=== PATIENT | female | born 1950 | race African-American/Black ===

== ENCOUNTER 2020-03-09 09:09 | Outpatient (CLI) | payer MEDICARE, SELFPAY ==
--- NOTE | ~2020-03-09 | MMUS_ITS ---
CORRECTED REPORT EXAMINATION CHANGED TO US breast cyst asp LT 05/16/2020 sef EXAMINATION: US breast biopsy LT w image, MM post biopsy invasive LT, US breast cyst asp LT DATE: 03/09/2020 10:31 (accession [id number]), 03/09/2020 10:30 (accession [id number]), 03/09/2020 10:31 (accession [id number]) INDICATION: Patient presents from outside hospital for ultrasound guided biopsy of two left breast masses. Ultrasound-guided core biopsy is requested to evaluate for malignancy. TECHNIQUE AND FINDINGS: The risks and potential benefits of the procedure were discussed with the patient including bleeding and infection. A time out was performed. The skin of the left breast was prepared and draped in usual sterile fashion. Attention was first directed to the mass at the 11:00 location 4 cm from the nipple. A preliminary scan, the mass had a cystic appearance. An 18-gauge needle was advanced towards the mass and the mass collapsed when the needle tip breached the margin, consistent with a cyst. Next, attention was directed towards the mass at the 12:00 location 2 cm from the nipple 1% lidocaine was used for superficial anesthesia. 1% lidocaine with epinephrine was used for deep anesthesia. A vacuum-assisted biopsy gun needle was advanced through to the outer edge of the region of interest from a lateral approach utilizing sonographic guidance. A total of three tissue core samples were obtained. A tissue marker clip was then placed at the biopsy site. Hemostasis was achieved. A sterile bandage was applied. The patient tolerated procedure well and there was no evidence of immediate complication. The patient was given verbal instructions to return to the Emergency Department in the event of severe breast pain or rapid breast enlargement. A two view left breast mammogram was obtained to document tissue marker clip placement. IMPRESSION: 1. Successful ultrasound-guided vacuum-assisted biopsy of left breast mass with tissue marker placement and left breast cyst aspiration. Reviewed, dictated and finalized at location A. KAYLENE IMPRESSION: 1. Successful ultrasound-guided vacuum-assisted biopsy of left breast mass with tissue marker placement and left breast cyst aspiration. IMPRESSION: 1. Successful ultrasound-guided vacuum-assisted biopsy of left breast mass with tissue marker placement and left breast cyst aspiration.
== END 2020-03-09 09:10 | disposition home or self-care (01) ==
PROVIDERS: Visit Provider Surgery
DX: R92.8 Other abnormal and inconclusive findings on diagnostic imaging of breast (principal); Z85.3 Personal history of malignant neoplasm of breast; N60.12 Diffuse cystic mastopathy of left breast; I86.2 Pelvic varices
CPT/HCPCS: 19000; 19001; 19083; 88305; A4648

== ENCOUNTER 2022-08-15 13:56 | Outpatient (CLI) | payer MEDICARE, SELFPAY ==
--- NOTE | ~2022-08-15 | XR_ITS ---
EXAMINATION: XR chest 2V DATE: 08/15/2022 14:37 INDICATION: Hypertension. Preop. TECHNIQUE: Frontal and lateral views of the chest were obtained. COMPARISON: None. FINDINGS: The chest demonstrates clear lungs without pneumonia, pleural effusion, or pneumothorax. Th e heart size is normal. There are surgical clips in right axilla. IMPRESSION: 1. No acute cardiopulmonary disease. Reviewed, dictated and finalized at location A. [employer]
--- NOTE | 2022-08-15 14:00 | ECG_ITS ---
Measurements Intervals [place] Rate: 73 P: 60 ND: 188 QRS: 5 QRSD: 90 T: 31 QT: 350 QTc: 387 Interpretive Statements SINUS RHYTHM INFERIOR MYOCARDIAL INFARCTION [40+ ms Q WAVE AND/OR ST/T ABNORMALITY IN II/aVF], PROBABLY OLD NO PREVIOUS ECG AVAILABLE FOR COMPARISON Electronically Signed On 08-15-2022 15:08:18 [employer] by Kaitlin Rajan M.D.
[2022-08-15 14:54] LABS: Basophils Absolute Auto 0.1 K/mm3 (0.0-0.1); Basophils Percent Auto 0.9 % (0.2-1.2); Eosinophils Absolute Auto 0.2 K/mm3 (0-0.3); Eosinophils Percent Auto 3.9 % (0-4.4); Hematocrit 41.2 % (37.0-47.0); Immature Granulocyte Absolute 0.01 K/mm3 (0.00-0.031); Immature Granulocyte Percent A 0.2 % (0-0.5); Lymphocytes Absolute Auto 2.15 K/mm3 (0.9-3.2); Lymphocytes Percent Auto 39.4 % (18.3-44.2); Mean Corpuscular HGB Conc 31.6 g/dl (32-36); Mean Corpuscular Hemoglobin 27.3 pg (26-34); Mean Corpuscular Volume 86.4 fl (80-100); Mean Platelet Volume 10.7 fl (7.4-10.4); Monocytes Absolute Auto 0.5 K/mm3 (0.1-0.6); Monocytes Percent Auto 8.3 % (2.6-8.5); Neutrophils Absolute Auto 2.6 K/mm3 (1.3-6.7); Neutrophils Percent Auto 47.3 % (45.5-73.1); Platelet Count Result 197 k/mm3 (150-375); Red Blood Count 4.77 M/mm3 (4.2-5.4); Red Cell Distribution Width 13.2 % (11.5-14.5); White Blood Count 5.5 K/mm3 (4.5-10.0)
[2022-08-15 15:07] LABS: Potassium 3.7 mmol/L (3.4-5.0)
[2022-08-15 15:22] LABS: Anion Gap 7 mmol/L (8-16); Blood Urea Nitrogen 21 mg/dL (7-17); Calcium 9.1 mg/dL (8.4-10.2); Carbon Dioxide 28 mmol/L (22-30); Chloride 103 mmol/L (98-107); Estimated Glomerular Filt Rate > 60; Glucose 104 mg/dL (65-110); Sodium 138 mmol/L (137-145)
== END 2022-08-15 13:57 | disposition home or self-care (01) ==
LOC: ANHSURGERY 14:01
PROVIDERS: Visit Provider Surgery
DX: C50.911 Malignant neoplasm of unspecified site of right female breast (principal); Z15.01 Genetic susceptibility to malignant neoplasm of breast; Z15.09 Genetic susceptibility to other malignant neoplasm
CPT/HCPCS: 36415; 71046; 80048; 85025; 86850; 86900; 86901; 93005

== ENCOUNTER 2022-08-31 13:10 | Outpatient (CLI) | payer MEDICARE, SELFPAY | END 2022-08-31 13:11 | disposition home or self-care (01) | PROVIDERS: Visit Provider Surgery | DX: Z85.3 Personal history of malignant neoplasm of breast (principal); Z01.818 Encounter for other preprocedural examination | CPT/HCPCS: 36415; 86850; 86900; 86901 ==

== ENCOUNTER 2022-09-06 14:15 | Observation (INO) | payer MEDICARE, SELFPAY ==
--- NOTE | 2022-08-13 09:33 | PC.NURSE ---
Report to the Outpatient Waiting Room, entrance under the green pavilion located off [facility], at time _0800 on date __08/21/22 . Planned Procedure Time: _1000 . Time changes happen often and if your time is changed the preop area will call you the afternoon before. - You and your visitor will be asked to self-screen and do not enter if you have any COVID symptoms. - Only one visitor is requested with a max of two and NO children visitors are allowed at this time. - The patient visitor may be requested to leave or wait in car when not with patient due to distancing restrictions. - A mask is optional within the hospital at this time. Patients may have clear liquids (water, carbonated beverages, clear teas, apple juice) until 3 hours prior to surgery with a maximum of 20 ounces. - No food from midnight until time of surgery - Infants may have breast milk until 4 hours before surgery, formula 6 hours prior to surgery. - Children will be allowed to drink immediately following surgery. If applicable, please bring a bottle or sippy cup to assist with drinking. Juice, water, soda, and popsicles are readily available. For infants on formula, please bring formula the day of surgery. Pacifiers are allowed. Take the following medications with a SIP of water the morning of surgery: __NONE DO NOT STOP ANY OF YOUR OTHER PRESCRIPTION MEDICATIONS PRIOR TO SURGERY ?EXCEPT THE FOLLOWING Medications to discontinue per physician ___NONE Date to take last dose HIBICLENS SHOWER MORNING OF SURGERY Please no make-up, nail frisian, hairspray, perfume, deodorant, or body powder the day of surgery. No jewelry (including any body piercings) or valuables the day of surgery, leave them at home. Please take a shower or bath the night before, or the morning of, surgery with an antibacterial soap. Wear comfortable, loose fitting clothing. Children are encouraged to wear pajamas. - Jewelry must be removed prior to entering the operating room. Rings and piercings that are not removed may be cut off. - The hospital will not accept responsibility for valuables. - Please leave all valuables, including medications, at home the day of surgery. If you are going home after surgery, a licensed electric truck driver must drive you home. - NO public transportation without another adult if you receive anesthesia. - We recommend that an adult stay with you for 24 hours following discharge. - We also recommend that you do not drive, make important decision, drink alcoholic beverages, or take any drugs that were not prescribed by your health care provider for at least 24 hours after your discharge time. Follow any additional instructions given to you from your surgeon. If you or anyone in your household have experienced Covid symptoms in the past week, please notify your surgeon or the nurse liaison at the phone number below for possible testing. Telephone instructions given to __PATIENT and asked if any additional questions and then verbalized understanding. Patient advised to call surgeon office or pre surgery nurse liaison [phone] if any additional questions.
[2022-08-13 09:42] VITALS: BMI 27.8
--- NOTE | 2022-08-30 13:37 | PC.NURSE ---
Report to the Outpatient Waiting Room, entrance under the green pavilion located off [facility] [address], at time __0900 on date __09/05/22 . Planned Procedure Time: __1100 . Time changes happen often and if your time is changed the preop area will call you the afternoon before. - You and your visitor will be asked to self-screen and do not enter if you have any COVID symptoms. - Only one visitor is requested with a max of two and NO children visitors are allowed at this time. - The patient visitor may be requested to leave or wait in car when not with patient due to distancing restrictions. - A mask is optional within the hospital at this time. Patients may have clear liquids (water, carbonated beverages, clear teas, apple juice) until 3 hours prior to surgery with a maximum of 20 ounces. - No food from midnight until time of surgery - Infants may have breast milk until 4 hours before surgery, formula 6 hours prior to surgery. - Children will be allowed to drink immediately following surgery. If applicable, please bring a bottle or sippy cup to assist with drinking. Juice, water, soda, and popsicles are readily available. For infants on formula, please bring formula the day of surgery. Pacifiers are allowed. Take the following medications with a SIP of water the morning of surgery: ____NONE DO NOT STOP ANY OF YOUR OTHER PRESCRIPTION MEDICATIONS PRIOR TO SURGERY ?EXCEPT THE FOLLOWING Medications to discontinue per physician NONE Date to take last dose HIBICLENS SHOWER MORNING OF SURGERY Please no make-up, nail lao, hairspray, perfume, deodorant, or body powder the day of surgery. No jewelry (including any body piercings) or valuables the day of surgery, leave them at home. Please take a shower or bath the night before, or the morning of, surgery with an antibacterial soap. Wear comfortable, loose fitting clothing. Children are encouraged to wear pajamas. - Jewelry must be removed prior to entering the operating room. Rings and piercings that are not removed may be cut off. - The hospital will not accept responsibility for valuables. - Please leave all valuables, including medications, at home the day of surgery. If you are going home after surgery, a licensed cement mixer driver must drive you home. - NO public transportation without another adult if you receive anesthesia. - We recommend that an adult stay with you for 24 hours following discharge. - We also recommend that you do not drive, make important decision, drink alcoholic beverages, or take any drugs that were not prescribed by your health care provider for at least 24 hours after your discharge time. For Pediatric surgeries, we recommend two adults accompany the child home. Follow any additional instructions given to you from your surgeon. If you or anyone in your household have experienced Covid symptoms in the past week, please notify your surgeon or the nurse liaison at the phone number below for possible testing. Telephone instructions given to ___PATIENT and asked if any additional questions and then verbalized understanding. Patient advised to call surgeon office or pre surgery nurse liaison [phone] if any additional questions.
--- NOTE | 2022-08-30 13:39 | PC.NURSE ---
PT STATES NO CHANGE IN HEALTH HX SINCE LAST INTERVIEW ON 08/13/22
--- NOTE | 2022-09-04 15:29 | PM.IMHP ---
H&P: HPI History of Present Illness Date/Time: 09/04/22 15:29 Chief Complaint: Recurrent right breast cancer Narrative: Patient is a 72-year-old woman who in 1997 was found to have a stage I upper outer quadrant right breast invasive cancer. She underwent lumpectomy, sentinel lymph node biopsy. She was also treated with radiation therapy. She has very strong family history of early development of breast and other malignancies. She underwent genetic testing in May of 2017. She was found to have BRCA2 positivity. Patient had in 2018 an abnormal lesion at the 4 o'clock position in the right breast. Image guided core biopsy of this showed only some fibrosis and possibly PASH. She underwent a laparoscopic bilateral salpingo-oophorectomy in February of 2020. This was negative for any signs of ovarian cancer. Patient on screening mammography in late 2021 was found to have 2 suspicious lesions by primarily ultrasound at the 4 o'clock position in the right breast. Ultrasound-guided biopsy of each of these lesions both showed invasive adenocarcinoma. One of the lesions was 16 mm in size, the other was 11 mm in size. After discussion in the office, the patient is recommended and agrees to proceed with right modified radical mastectomy. Because of her BRCA 2 status, she prefers to also have left mastectomy. She is taken to surgery at this time for both these procedures under anesthesia. Review of Systems Review of Systems: All systems reviewed & are unremarkable except as noted in HPI and below (HPI and those items noted below) Constitutional: Constitutional: Denies chills and Denies fever(s) Cardiovascular: Cardiovascular: Denies chest pain, Denies diaphoresis, Denies dyspnea and Denies paroxysmal nocturnal dyspnea Respiratory: Respiratory: Denies chest congestion, Denies cough and Denies dyspnea Integumentary/Breasts: Skin/Breast: Denies lesions and Denies rash PMF Past Medical History Medical History (Updated 09/04/22 @ 15:50 by Gómez Roach MD) Hepatitis-C High cholesterol Hypertension Surgical History Surgical History (Updated 09/04/22 @ 15:50 by Gómez Roach MD) History of bilateral salpingo-oophorectomy (BSO) February 2020, no evidence of malignancy History of right breast cancer Diagnosed and treated 1997. Lumpectomy, sentinel node biopsy, radiation therapy and chemotherapy. Family History Family History Sibling Cerebrovascular accident Family history of malignant neoplasm Father COPD (chronic obstructive pulmonary disease) Other Diabetes mellitus Family history of cardiovascular disease Hypertension Social History Social History Smoking status: Never smoker Alcohol intake: current Living arrangements: alone Spiritual care concerns: No Meds Home Medications and Allergies Home Medications Medication Instructions Recorded Confirmed Type amlodipine 10 mg tablet 10 mg PO DAILY 02/24/20 08/30/22 History atorvastatin 20 mg tablet 20 mg PO DAILY 02/24/20 08/30/22 History benazepril 40 mg tablet 40 mg PO DAILY 02/24/20 08/30/22 History Allergies Allergy/AdvReac Type Severity Reaction Status Date / Time codeine AdvReac sick Verified 08/30/22 13:40 Exam Const: General: comfortable, no acute distress, alert and awake HENMT: Head: normocephalic and atraumatic Mouth: Yes Normal oral and palatal mucosa present Eyes: Conjunctivae: conjunctivae normal Pupils: Equal, round and reactive pupils present EOM: EOMs intact bilaterally Neck: Neck: normal visual inspection, no lymphadenopathy and nontender Chest: Chest palpation & inspection: normal inspection of the chest and normal palpation of entire chest wall Breast/axilla inspection: abnormal inspection of the axilla (Axillary incision scar) and abnormal inspection of the breast (Upper outer quadrant right jase
[2022-09-05] VITALS (13 sets, daily range): BP systolic 121–158; BP diastolic 66–89; PULSE 62–92; RESP 12–18; TEMP 36.2–36.8; O2SAT 97–100; BMI 26.8
[2022-09-05] MEDS: ACETAMINOPHEN 500 MG TABLET 1000 MG PO (09:26)
[2022-09-05] MEDS: KETOROLAC 15 MG/ML VIAL (*BKC) IV PUSH (09:42)
[2022-09-05] MEDS: LACTATED RINGERS 1,000 ML 30 ML IV CONT ×2 (09:42→14:25)
--- NOTE | 2022-09-05 09:58 | WPDHPUPDATE1 ---
History and Physical Update Update Date/Time: 09/05/22 09:58 History and Physical has been reviewed, including an updated exam of the patient. There are NO changes in the patient's condition. Risks, benefits, and alternatives have been discussed and questions answered. Patient agrees to proceed with procedure.
--- NOTE | 2022-09-05 10:35 | WPDANESEPPF ---
Anes - Initial Pre Proc Eval Procedure: Operation Date: 09/05/22 11:00 Proposed Procedures p Right Modified Radical Mastectomy, - Gómez Roach MD s Left Simple Mastectomy - Gómez Roach MD Date/Time: 09/05/22 10:35 Surgeon: Gómez Roach MD Pre Op Diagnosis: recurrent breast cancer, +BRCA gene Patient Data Age: 72 Gender: F Height: 1.6 m Weight: 68.6 kg Last Vital Signs Temp 36.7 C 09/05/22 09:00 Pulse 63 09/05/22 09:00 Resp 16 09/05/22 09:00 BP 158/74 H 09/05/22 09:00 Pulse Ox 100 09/05/22 09:00 O2 Del Method Room Air 09/05/22 09:00 Allergies Allergy/AdvReac Type Severity Reaction Status Date / Time codeine AdvReac Intermediate Nausea and Verified 09/05/22 09:24 Vomiting Home Medications Medication Instructions Recorded Confirmed Type amlodipine 10 mg tablet 10 mg PO DAILY 02/24/20 09/05/22 History atorvastatin 20 mg tablet 20 mg PO DAILY 02/24/20 09/05/22 History benazepril 40 mg tablet 40 mg PO DAILY 02/24/20 09/05/22 History Patient hx anesthesia problems: none Family hx anesthesia problems: none Results Review: All pre-operative results and documents have been reviewed as part of the pre-operative evaluation. [facility] Past Medical History Medical History Hepatitis-C High cholesterol Hypertension Surgical History Surgical History History of bilateral salpingo-oophorectomy (BSO) February 2020, no evidence of malignancy History of right breast cancer Diagnosed and treated 1997. Lumpectomy, sentinel node biopsy, radiation therapy and chemotherapy. Family History Family History Sibling Cerebrovascular accident Family history of malignant neoplasm Father COPD (chronic obstructive pulmonary disease) Other Diabetes mellitus Family history of cardiovascular disease Hypertension Social History Social History Smoking status: Never smoker Alcohol intake: current Living arrangements: alone Spiritual care concerns: No Anes - Eval Final PreProcedure Day of Procedure 09/05/22 10:35 Patient weight: overweight Heart: regular rate and rhythm Lungs: clear to auscultation Airway: Mallampati scale class II Neurological: alert and oriented Last oral intake: >/= 8 hours ASA classification: III Emergent: no Anesthetic plan: proceed Anesthesia type and monitoring: general LMA and standard monitoring Results Review: All pre-operative results and documents have been reviewed as part of the pre-operative evaluation. Informed Consent: The patient's anesthetic plan and its attendant risks and benefits were discussed with the patient/family/POA. Questions were solicited and answers provided to the satisfaction of the patient/family/POA.
[2022-09-05] MEDS: ceFAZolin 2 GM/D5W 50 ML 2 GM/50 ML BAG IVPB (11:29)
--- NOTE | 2022-09-05 12:32 | SUR.OPER ---
Addendum entered by Larissa Islas RN 09/05/22 13:42: RIGHT BREAST SPECIMEN- Out of Room- 1339 Received by Lab- [id number] Original Note: LEFT BREAST SPECIMEN- Excision- 1227 Out of Room- 1228 Received by Lab- [id number] RIGHT BREAST SPECIMEN-
--- NOTE | 2022-09-05 14:19 | W.PM.PROC2 ---
Procedure Note - Detailed Date of Procedure 09/05/22 Pre-op Diagnosis recurrent Right breast cancer, +BRCA gene Post-op Diagnosis Same Procedure Performed left total mastectomy, right modified radical mastectomy Surgeon Gómez Roach MD [employer]iston [employer] Leila FONSECA /Huong FONSECA Anesthesia General Indications patient had right breast cancer in 1997. She had a lumpectomy and axillary surgery as well as radiation therapy and chemotherapy. She could not remember if her axillary surgery was a sentinel node biopsy or a more involved axillary dissection. She has developed recurrent right breast cancer now in the inferior medial quadrant in 2 different areas. She has had genetic testing due to a strong family history of breast and other malignancies at an early age. She is known to have BRCA 2 gene mutation. She also requests to have prophylactic left mastectomy due to her genetic mutation and high risk of left breast cancer. She is taken to surgery now for left total mastectomy, right modified radical mastectomy. Findings No gross evidence of malignancy was noted. It appeared the patient did have a right axillary dissection. We removed what axillary tissue we could find to perform a level 2 axillary dissection but no definite lymph nodes were appreciated. Left breast had no suggestion of malignancy or other problems. Description of Procedure Patient was taken to surgery and induced into general anesthesia. Both breasts were prepped and draped. On the right side the right arm was prepped into the field so that it was mobile in the axilla was well visualized. The left breast had the IV and was placed on an arm board at right angles from the patient's left chest. After prep and drape, we turned our attention 1st to the left breast. A Rigo type ellipse was drawn around the left breast nipple. Incision were made over the area of the lips. Cautery was used for hemostasis. We started with the superior flaps using face-lift retractors to elevate the skin. The superior flap was raised taking care not to injure the skin or make the flap to thin. We dissected up to the area of the left clavicle. We then dissected onto the chest wall. We continued over medially to the lateral aspect of the sternum. The cautery was used for virtually all the dissection. Cautery was used for hemostasis as well. Once the superior flap been created, I change positions with the 1st social human services assistants. We then elevated the inferior flap in similar fashion. This was taken down to the insertion of the rectus muscle. Re proceeded medially to the lateral border of the sternum and laterally to the serratus anterior muscle. We then changed sides again. The breast was elevated and, taking the pectoralis major fascia with the breast specimen, we dissected the breast off the pectoralis major muscle. Once the breast was removed, it was submitted fresh to the pathologist labeled right breast. We then inspected the wound and mated meticulously hemostatic. A 15 [place] Mayo drain was placed under the superior flap and brought out through the lateral aspect of the lower flap. The drain was sutured to the skin with 2-0 silk. The 2 flaps were then closed using interrupted 3-0 and 4-0 Vicryl subcuticular interrupted suture. Finally the skin was closed with a running 4-0 Monocryl skin suture. The drain was placed to bulb suction and held suction well. The surgical team then changed to the patient's right side and proceeded with the modified radical mastectomy. In similar fashion, a Rigo type ellipse was drawn around the right breast nipple such that the lateral aspect of this ellipse was aimed at the axillary contents. incision was made over the entire ellipse. Cautery was used for hemostasis. We then elevated the superior flap in similar fashion as had been done on the right side. Superior flap was created using similar boundaries of the right clavicle, lateral border of the
--- NOTE | 2022-09-05 16:40 | ADMGEN ---
This patient, Jyotsna Bruce, was admitted to Medical Room 341-01. Patient/family oriented to hospital policies and general routines including ID bracelet, bed and alarms, visiting hours, pain management, procedures, bathroom and other care routines, personal items, smoking policy, room service/diet, and visiting hours. Information on how to activate the Rapid Response Team has been discussed. Patient/Family are encouraged to report perceived risks to care and to ask questions if they do not understand what they are told or what they should do.
[2022-09-05] MEDS: DOCUSATE SODIUM 100 MG CAPSULE PO (17:04)
[2022-09-05] MEDS: ONDANSETRON INJ 4 MG/2 ML VIAL IV PUSH (17:04)
[2022-09-05] MEDS: LACTATED RINGERS 1,000 ML 100 ML IV CONT (20:25)
--- NOTE | 2022-09-05 21:41 | PC.NURSE ---
Pt teaching was given regarding CARMINA drains as pt will be discharged with all 3 drains per physician written instructions. Pt was instructed on numbers of CARMINA drains that in place (2 drains on right side and 1 drain on left side), how to empty it, and how to close the drains once its empty. Pt was advised to record each output and to monitor the color of output from the drains (all recordings to be kept and to be brought in for follow up appointment). Teachings were demonstrated to the patient and did not have any further questions from the patient.
[2022-09-06] VITALS (10 sets, daily range): BP systolic 105–143; BP diastolic 55–75; PULSE 64–99; RESP 13–18; TEMP 35.7–36.6; O2SAT 94–100
[2022-09-06] MEDS: DOCUSATE SODIUM 100 MG CAPSULE PO (08:20)
[2022-09-06] MEDS: ENOXAPARIN 40 MG/0.4 ML SYRINGE SUB-Q (08:20)
[2022-09-06] MEDS: lisinopriL 20 MG TABLET 40 MG PO (08:20)
[2022-09-06] MEDS: amLODIPine BESYLATE 5 MG TABLET 10 MG PO (08:20)
[2022-09-06] MEDS: ATORVASTATIN 20 MG TABLET PO (08:20)
--- NOTE | 2022-09-06 10:24 | WPDANESPN ---
Anes - Prog Note Post-Op Date/Time: 09/06/22 10:24 Cardiovascular status: normal Respiratory status: normal Airway patency: baseline Mental status: baseline Post-Op hydration status: normal Vital Signs: Last Vital Signs Temp 36.1 C L 09/06/22 04:23 Pulse 64 09/06/22 04:23 Resp 18 09/06/22 04:23 BP 116/59 L 09/06/22 04:23 Pulse Ox 100 09/06/22 04:23 O2 Del Method Room Air 09/06/22 08:00 O2 Flow Rate 8 09/05/22 14:40 Pain Score (VAS): 0 I/O: Intake & Output 09/05/22 09/06/22 09/06/22 23:59 07:59 15:59 Intake Total 550 200 240 Output Total 130 365 Balance 420 -165 240 Post-procedural complaints: none Patient Feedback: Patient satisfied with anesthetic care.
--- NOTE | 2022-09-06 11:48 | PM.PNGS ---
Progress Note: A&P Assessment and Plan (1) Seroma after procedure: Status: Acute Assessment and Plan: Seroma or hematoma accumulating right mastectomy site. Right side healing appropriately. Explained to patient. Will take back to surgery today to evacuate and replace drain. Make NPO now. (2) Invasive ductal carcinoma of right breast: Code(s): C50.911 - Malignant neoplasm of unspecified site of right female breast Status: Chronic Assessment and Plan: s/p right mastectomy, healing well (3) BRCA2 gene mutation positive in female: Code(s): Z15.01 - Genetic susceptibility to malignant neoplasm of breast; Z15.02 - Genetic susceptibility to malignant neoplasm of ovary; Z15.09 - Genetic susceptibility to other malignant neoplasm Status: Chronic Assessment and Plan: s/p left prophylactic mastectomy. See above. Subjective Subjective Date/Time Seen: 09/06/22 11:48 Post Op day: 1 Patient reports: no new complaints, feels better, pain is less, tolerating a regular diet, no flatus, no bowel movement and afebrile Interval history: feels good. Requiring very little pain medication. Has been up to BR and up in room. Exam Const: General: comfortable and no acute distress; No confusion Orientation/consciousness: patient oriented x3 and No confusion Chest: Chest palpation & inspection: abnormal inspection of the chest (large seroma left mastectomy wound. Some ecchymosis) other (drain still working but sanguinous in grenade. ) Neuro: General: patient oriented x3, no focal motor deficits and No confusion Extrem: General: no calf tenderness and no edema Psych: Affect: normal affect Insight: Good insight present (Psych) Judgement: Good judgement present (Psych) Objective Data Vital Signs Vital Signs: Vital Signs - 24 hr 09/05/22 14:25 09/05/22 14:40 09/05/22 14:55 Temperature 36.2 C L Pulse Rate 92 70 68 Respiratory Rate 16 12 16 Blood Pressure 138/73 141/76 H 146/74 H Pulse Oximetry 100 100 97 Oxygen Delivery Simple Face Mask Simple Face Mask Room Air Oxygen Flow Rate 8 8 09/05/22 15:10 09/05/22 15:25 09/05/22 15:40 Temperature Pulse Rate 70 62 71 Respiratory Rate 15 16 16 Blood Pressure 155/81 H 137/67 130/73 Pulse Oximetry 97 97 98 Oxygen Delivery Room Air Room Air Room Air Oxygen Flow Rate 09/05/22 15:55 09/05/22 16:10 09/05/22 16:25 Temperature Pulse Rate 65 68 77 Respiratory Rate 14 16 18 Blood Pressure 130/70 128/72 130/71 Pulse Oximetry 98 97 98 Oxygen Delivery Room Air Room Air Room Air Oxygen Flow Rate 09/05/22 16:50 09/05/22 18:27 09/05/22 20:07 Temperature 36.8 C 36.6 C Pulse Rate 70 65 Respiratory Rate 16 18 Blood Pressure 130/89 121/66 Pulse Oximetry 98 98 Oxygen Delivery Room Air Oxygen Flow Rate 09/05/22 20:00 09/06/22 00:43 09/06/22 04:23 Temperature 36.6 C 36.1 C L Pulse Rate 65 73 64 Respiratory Rate 18 18 18 Blood Pressure 108/59 L 116/59 L Pulse Oximetry 98 98 100 Oxygen Delivery Room Air Oxygen Flow Rate 09/06/22 08:00 Temperature Pulse Rate Respiratory Rate Blood Pressure Pulse Oximetry Oxygen Delivery Room Air Oxygen Flow Rate Intake/Output Intake/Output: Intake & Output 09/03/22 09/04/22 09/05/22 09/06/22 23:59 23:59 23:59 23:59 Intake Total 550 440 Output Total 140 365 Balance 410 75 Meds/Results Medications: Active Medications Generic Name Dose Route Start Last Admin Trade Name Freq PRN Reason Stop Dose Admin Acetaminophen 500 mg 09/05/22 16:30 Acetaminophen 500 Mg Tablet PO Q6H PRN Mild Pain (1-3) or Fever Hydrocodone Bitart/Acetaminophen 1 tab 09/05/22 16:30 Hydrocodone/Acetaminophen (*Crx) 5-325 Mg Tablet PO Q4H PRN Pain Rated 4-6 Hydrocodone Bitart/Acetaminophen 1 tab 09/05/22 16:30 Hydrocodone/Acetaminophen (*Crx) 10-325 Mg Tablet PO Q6H PRN Pain Rated 7-10 Amlodipine Besylate 10 mg
[2022-09-06] MEDS: LACTATED RINGERS 1,000 ML 30 ML IV CONT (13:45)
--- NOTE | 2022-09-06 14:30 | P.PNAN_ITS ---
Anes - Eval Final PreProcedure Day of Procedure 09/06/22 14:30 Patient weight: overweight Heart: regular rate and rhythm Lungs: clear to auscultation Airway: Mallampati scale class II Neurological: alert and oriented Last oral intake: 4 hours (930am) ASA classification: III Emergent: no Anesthetic plan: proceed Anesthesia type and monitoring: monitored anesthesia care Results Review: All pre-operative results and documents have been reviewed as part of the pre- operative evaluation. Informed Consent: The patient's anesthetic plan and its attendant risks and benefits were discussed with the patient/family/POA. Questions were solicited and answers provided to the satisfaction of the patient/family/POA.
--- NOTE | 2022-09-06 14:48 | WPDHPUPDATE1 ---
History and Physical Update Update Date/Time: 09/06/22 14:48 History and Physical has been reviewed, including an updated exam of the patient. There are NO changes in the patient's condition. Risks, benefits, and alternatives have been discussed and questions answered. Patient agrees to proceed with procedure.
[2022-09-06] MEDS: ceFAZolin 2 GM/D5W 50 ML 2 GM/50 ML BAG IVPB (15:01)
[2022-09-06] MEDS: BUPIVACAINE/EPINEPHRINE 0.5% 30 ML VIAL INFILTRATE (16:06)
--- NOTE | 2022-09-06 16:39 | W.PM.PROC2 ---
Procedure Note - Detailed Date of Procedure 09/06/22 Pre-op Diagnosis Left mastectomy seroma Post-op Diagnosis Other ( left mastectomy hematoma) Procedure Performed evacuation large hematoma left mastectomy wound Surgeon Gómez Roach MD Foil Wrapper Heather FONSECA Anesthesia General and Local ( 0.5% Marcaine with epinephrine) Indications patient underwent bilateral mastectomy yesterday. On rounds this morning, she had a large fluid collection with some mild bruising on the left mastectomy site. She was not having any pain. The left CARMINA drain was still draining serous fluid. She is taken back to surgery now for evacuation of presumptive seroma. Findings This was actually a large hematoma. The actual site of bleeding was not found. Probably 150 cc of hematoma and old blood were present in the left mastectomy wound. Very little bleeding occurred with the procedure. Description of Procedure Patient was taken to surgery and IV sedation was administered. The left-sided CARMINA drain was removed. The left chest was prepped and draped. The Xeroform adhesive was attempted to be removed but was very adherent. Some was able to be removed but the other was so stuck it was concerning for skin injury to try to remove it. Local was infiltrated over the mid and lateral aspects of the mastectomy incision. I then opened the wound in this location. There was bulky hematoma present. We started to evacuate this but the patient was uncomfortable and no further local anesthetic could be administered to help with that. She was converted to general endotracheal anesthesia. I then proceeded to open the entire mastectomy wound. We evacuated all the old blood and clot. This took a considerable amount of time and required irrigation with copious amounts of normal saline. I removed as much of the hematoma as I could. We then searched the pectoralis major muscle the lateral aspect of the mastectomy wound as well as both the superior and inferior flaps thoroughly for a source of bleeding. There was some small areas particularly on the pectoralis major muscle that were cauterized. A couple of other small areas on the superior flap were cauterized. It is doubtful these were the source of the bleeding as they more likely were areas where the hematoma had been removed and the underlying tissue oozed blood. I then again irrigated the entire mastectomy wound with warm saline. We looked again for any sign of bleeding. None was noted. A 19 Mayo drain was placed in the lateral and posterior position of the inferior flap. This drain was positioned under the superior flap. A 2nd 19 Mayo drain was then placed more medial than the 1st drain and again through the lower aspect of the inferior flap. This drain was placed under the inferior flap and in the center of the wound. Both drains were sutured securely to the skin. The mastectomy wound was then closed with interrupted 3-0 Vicryl suture to approximate most of the wound. We then placed 4-0 Vicryl subcuticular interrupted suture to finish closing the wound. We then placed suction to each of the drains and placed a bulb suction to each drain. Mastectomy wound looked better and the flaps were attached to the chest wall as they should be. The incision was dressed with Xeroform gauze, 4x4s and Medipore tape. Drain sponges and Medipore tape were placed around each of the drains. The patient was then awakened and taken to recovery in good condition. The left arm was placed in a sling before leaving the operating room. Sponge needle counts were correct x2. Estimated Blood Loss -20 Urine Output 300 Drains Yes ( Nineteen Mayo drains under the superior flap and under the inferior flap) Packing No Pathology None sent Complications No immediate complications Condition Stable Disposition PACU [facility] Billing Surgery - Charge Forward: Surgery Billing ( evacuation left mastectomy hematoma)
[2022-09-07 05:40] LABS: Hematocrit 25.5 % (37.0-47.0); Hemoglobin 8.3 g/dL (12.0-15.0); Mean Corpuscular HGB Conc 32.5 g/dl (32-36); Mean Corpuscular Hemoglobin 27.9 pg (26-34); Mean Corpuscular Volume 85.9 fl (80-100); Mean Platelet Volume 10.7 fl (7.4-10.4); Platelet Count Result 146 k/mm3 (150-375); Red Blood Count 2.97 M/mm3 (4.2-5.4); Red Cell Distribution Width 13.3 % (11.5-14.5); White Blood Count 8.7 K/mm3 (4.5-10.0)
[2022-09-07 05:48] LABS: Anion Gap 2 mmol/L (8-16); Blood Urea Nitrogen 20 mg/dL (7-17); Calcium 8.5 mg/dL (8.4-10.2); Carbon Dioxide 27 mmol/L (22-30); Chloride 105 mmol/L (98-107); Estimated CRCL calculation 46 ml/min; Estimated Glomerular Filt Rate > 60; Glucose 131 mg/dL (65-110); Potassium 4.3 mmol/L (3.4-5.0); Sodium 134 mmol/L (137-145)
[2022-09-07] MEDS: DOCUSATE SODIUM 100 MG CAPSULE PO (08:56)
[2022-09-07] MEDS: amLODIPine BESYLATE 5 MG TABLET 10 MG PO (08:56)
[2022-09-07] MEDS: lisinopriL 20 MG TABLET 40 MG PO (08:56)
[2022-09-07] MEDS: ATORVASTATIN 20 MG TABLET PO (08:57)
[2022-09-07 15:33] VITALS: BP 108/51; PULSE 83; RESP 18; TEMP 36.8; O2SAT 98
--- NOTE | 2022-09-07 16:40 | PM.DS ---
DS: Admitting Diagnosis Discharge Date 09/07/2022 Admitting Diagnosis recurrent right breast cancer BRCA 2 genetic mutation hematoma left mastectomy wound iron deficiency anemia DS: Discharge Diagnosis Discharge Diagnosis (1) Invasive ductal carcinoma of right breast: Code(s): C50.911 - Malignant neoplasm of unspecified site of right female breast Status: Chronic Assessment and Plan: patient underwent right modified radical mastectomy on 09/05/2022 for recurrent right breast cancer (2) BRCA2 gene mutation positive in female: Code(s): Z15.01 - Genetic susceptibility to malignant neoplasm of breast; Z15.02 - Genetic susceptibility to malignant neoplasm of ovary; Z15.09 - Genetic susceptibility to other malignant neoplasm Status: Chronic Assessment and Plan: patient underwent prophylactic left mastectomy due to high risk of cancer (3) Postoperative hematoma: Status: Acute Assessment and Plan: patient noted to have large hematoma left mastectomy wound on postop day 1. She was returned to surgery. Hematoma was evacuated. Mastectomy healing well on postop day 2 (4) Iron deficiency anemia: Code(s): D50.9 - Iron deficiency anemia, unspecified Status: Acute Assessment and Plan: hemoglobin 8.3 and hematocrit 25.5. Patient will go home on iron. DS: Summary Hospital Course Hospital Course: patient has history of right breast cancer in 1997. She had lumpectomy and axillary dissection. She had postoperative radiation therapy and chemotherapy. She has a strong family history of early age cancers and had BRCA testing. She is positive for BRCA 2 gene mutation. She was seen more recently with abnormal lesions in the inferior medial quadrant of the right breast. Ultrasound-guided biopsy of each of these lesions showed recurrent breast cancer. After discussion, patient prefers to have right mastectomy as well as prophylactic left mastectomy. Plan was to proceed with modified radical mastectomy and try to remove right axillary nodes at the time of surgery. Even though a level 2 dissection was done, no lymph nodes were noted and none were present in the path specimen. On postop day 1., the patient had a left mastectomy hematoma. She was taken back to surgery and the hematoma was evacuated. She was observed overnight with left arm in a sling. She did well although she was anemic on 09/07/2022. She did not require any pain medication throughout her hospital stay. She is discharged now in good condition following bilateral mastectomy. Time Spent with Patient Time attestation: Total time spent providing and/or coordinating discharge services: DS: Data Data Completed and Pending Completed studies during hospitalization: Pending at discharge 09/05/22 12:26 Surgical [PTH] Routine Surgical [PTH] Routine Labs on day of discharge: Labs from last 24 hours 09/07/22 09/07/22 05:27 05:27 WBC 8.7 RBC 2.97 L Hgb 8.3 L D Hct 25.5 L MCV 85.9 MCH 27.9 MCHC 32.5 RDW 13.3 Plt Count 146 L MPV 10.7 H Sodium 134 L Potassium 4.3 Chloride 105 Carbon Dioxide 27 Anion Gap 2 L BUN 20 H Creatinine 0.90 Estim Creat Clear Calc 46 Estimated GFR > 60 Glucose 131 H Calcium 8.5 Discharge Plan Discharge Attending physician on discharge: Gómez Roach Discharging Clinician: Gómez Roach Anticipated Discharge Date/Time: 09/07/22 16:46 Patient Disposition: Home, Self-Care Activity: no shower Diet: regular Wound Care Instructions: keep dressing dry and change dressing daily Discharge Instructions: Where left arm sling today, Saturday, Saturday. May remove at bedtime. No need to wear sling after Saturday. Change left mastectomy wound dressing with dry gauze and tape daily. Change dressings to drains as needed. Okay to ambulate at home but this weekend remained fairly sedentary. See
== END 2022-09-07 17:30 | disposition home or self-care (01) ==
LOC: ANHSURGERY 14:19 → ANH3MED 14:19
PROVIDERS: Admitting Provider Surgery; Visit Provider Surgery
PROC: (CPT 19307; principal; 2022-09-05 11:00)
PROC: (CPT 19303; 2022-09-05 11:00)
DX: C50.411 Malignant neoplasm of upper-outer quadrant of right female breast (principal); M96.843 Postprocedural seroma of a musculoskeletal structure following other procedure; Y83.8 Other surgical procedures as the cause of abnormal reaction of the patient, or of later complication, without mention of misadventure at the time of the procedure; Z15.01 Genetic susceptibility to malignant neoplasm of breast; Z15.02 Genetic susceptibility to malignant neoplasm of ovary; Z15.09 Genetic susceptibility to other malignant neoplasm; E78.00 Pure hypercholesterolemia, unspecified; I10 Essential (primary) hypertension; F10.90 Alcohol use, unspecified, uncomplicated; Z20.822 Contact with and (suspected) exposure to COVID-19; E66.3 Overweight; Z68.26 Body mass index [BMI] 26.0-26.9, adult; Z79.899 Other long term (current) drug therapy; Z85.3 Personal history of malignant neoplasm of breast; Z92.21 Personal history of antineoplastic chemotherapy; Z92.3 Personal history of irradiation; Z86.19 Personal history of other infectious and parasitic diseases; Z80.9 Family history of malignant neoplasm, unspecified
CPT/HCPCS: 19303; 19307; 21501; 36415; 80048; 85027; 86850; 86900; 86901; 88307; A4565; A9270; C1713; G0378; G0379; J0330; J0690; J1100; J1650; J1885; J2250; J2405; J2704; J3010; J7120

== ENCOUNTER 2022-10-09 12:23 | Outpatient (CLI) | payer MEDICARE, SELFPAY ==
[2022-10-09 13:20] LABS: Basophils Absolute Auto 0.1 K/mm3 (0.0-0.1); Basophils Percent Auto 0.8 % (0.2-1.2); Eosinophils Absolute Auto 0.7 K/mm3 (0-0.3); Eosinophils Percent Auto 12.4 % (0-4.4); Hematocrit 35.1 % (37.0-47.0); Hemoglobin 10.5 g/dL (12.0-15.0); Immature Granulocyte Absolute 0.02 K/mm3 (0.00-0.031); Immature Granulocyte Percent A 0.3 % (0-0.5); Lymphocytes Absolute Auto 2.09 K/mm3 (0.9-3.2); Lymphocytes Percent Auto 34.9 % (18.3-44.2); Mean Corpuscular HGB Conc 29.9 g/dl (32-36); Mean Corpuscular Hemoglobin 27.1 pg (26-34); Mean Corpuscular Volume 90.5 fl (80-100); Mean Platelet Volume 10.3 fl (7.4-10.4); Monocytes Absolute Auto 0.5 K/mm3 (0.1-0.6); Monocytes Percent Auto 8.7 % (2.6-8.5); Neutrophils Absolute Auto 2.6 K/mm3 (1.3-6.7); Neutrophils Percent Auto 42.9 % (45.5-73.1); Platelet Count Result 344 k/mm3 (150-375); Red Blood Count 3.88 M/mm3 (4.2-5.4); Red Cell Distribution Width 15.1 % (11.5-14.5)
[2022-10-09 13:31] LABS: INR 1.1; Prothrombin Time 13.9 Seconds (11.1-14.7)
[2022-10-09 13:32] LABS: Partial Thromboplastin Time 35.8 SECONDS (22.3-36.8)
[2022-10-09 13:45] LABS: Hypochromasia 2+ (NORMAL); Platelet Estimate Adequate (Adequate); Schistocytes None Seen (NORMAL)
== END 2022-10-09 12:24 | disposition home or self-care (01) ==
LOC: ANHSURGERY 12:27
PROVIDERS: Visit Provider Surgery
DX: C50.911 Malignant neoplasm of unspecified site of right female breast (principal); Z01.818 Encounter for other preprocedural examination
CPT/HCPCS: 36415; 85025; 85610; 85730

== ENCOUNTER 2022-10-11 01:34 | Day surgery (SDC) | payer BC, MEDICARE, SELFPAY ==
[2022-10-09 09:21] VITALS: BMI 26.6
--- NOTE | 2022-10-09 09:29 | PC.NURSE ---
PRE-OP INSTRUCTIONS, PLEASE READ CAREFULLY Report to the Outpatient Waiting Room, entrance under the green pavilion located off [facility], at time _1000_ on date _10/11/22_. Planned Procedure Time: _1200_. Time changes happen often and if your time is changed the preop area will call you the afternoon before. - You and your visitor will be asked to self-screen and do not enter if you have any COVID symptoms. - Only one visitor is requested with a max of two and NO children visitors are allowed at this time. - The patient visitor may be requested to leave or wait in car when not with patient due to distancing restrictions. - A mask is optional within the hospital at this time. Patients may have clear liquids (water, carbonated beverages, clear teas, apple juice) until 3 hours prior to surgery (0900 AM) with a maximum of 20 ounces. - No food from midnight until time of surgery Take the following medications with a SIP of water the morning of surgery: _AMLODIPINE_ DO NOT STOP ANY OF YOUR OTHER PRESCRIPTION MEDICATIONS PRIOR TO SURGERY ?EXCEPT THE FOLLOWING Medications to discontinue per physician _NONE__, Date to take last dose Please no make-up, nail danish, hairspray, perfume, deodorant, or body powder the day of surgery. No jewelry (including any body piercings) or valuables the day of surgery, leave them at home. Please take a shower or bath the night before, or the morning of, surgery with an antibacterial soap. Wear comfortable, loose fitting clothing. - Jewelry must be removed prior to entering the operating room. Rings and piercings that are not removed may be cut off. - The hospital will not accept responsibility for valuables. - Please leave all valuables, including medications, at home the day of surgery. If you are going home after surgery, a licensed entry level truck driver must drive you home. - NO public transportation without another adult if you receive anesthesia. - We recommend that an adult stay with you for 24 hours following discharge. - We also recommend that you do not drive, make important decision, drink alcoholic beverages, or take any drugs that were not prescribed by your health care provider for at least 24 hours after your discharge time. Follow any additional instructions given to you from your surgeon. If you or anyone in your household have experienced Covid symptoms in the past week, please notify your surgeon or the nurse liaison at the phone number below for possible testing. Telephone instructions given to _PATIENT_and asked if any additional questions and then verbalized understanding. Patient advised to call surgeon office or pre surgery nurse liaison [phone] if any additional questions.
--- NOTE | ~2022-10-11 | XR_ITS ---
Portable chest x-ray Comparison: 08/15/2022 Clinical History: Mediport placement Findings: Left-sided Mediport in satisfactory position. Lungs are clear, without focal consolidation or pleural effusion. No pneumothorax. Cardiomediastinal silhouette is stable. Bones and soft tissue s are unremarkable. Impression: Left-sided Mediport in place. Clear lungs. Reviewed, dictated and finalized at location M. Impression: Left-sided Mediport in place. Clear lungs.
--- NOTE | ~2022-10-11 | XR_ITS ---
EXAMINATION: XR fl guide central line place DATE: 10/11/2022 12:31 INDICATION: Port placement. TECHNIQUE: A single intraoperative fluoroscopic view of the chest was obtained. I was not present. Fl uoroscopy exposure time was 21 seconds. COMPARISON: Chest 2 views 08/15/2022 FINDINGS: There is a left internal jugular port with tip in superior vena cava. IMPRESSION: 1. Port tip in superior vena cava. Reviewed, dictated and finalized at location A.
--- NOTE | 2022-10-11 07:30 | PM.IMHP ---
H&P: HPI History of Present Illness Date/Time: 10/11/22 07:30 Chief Complaint: recurrent right breast cancer Narrative: Pt is a 72 y/o F c recurrent R breast cancer s/p R MRM and L total mastectomy. Pt does have BRCA + gene. Pt is going to undergo adjuvant treatment and presents for VAD placement. Pt denies previous central venous cateterization. Review of Systems Review of Systems: All systems reviewed & are unremarkable except as noted in HPI and below PMFSH Past Medical History Medical History Hepatitis-C High cholesterol Hypertension Surgical History Surgical History H/O mastectomy Right modified radical and L simple mastectomy on 09/05/22 History of bilateral salpingo-oophorectomy (BSO) February 2020, no evidence of malignancy History of evacuation of hematoma 09/06/2022- evacuation large hematoma left mastectomy wound History of right breast cancer Diagnosed and treated 1997. Lumpectomy, sentinel node biopsy, radiation therapy and chemotherapy. Family History Family History Sibling Cerebrovascular accident Family history of malignant neoplasm Father COPD (chronic obstructive pulmonary disease) Other Diabetes mellitus Family history of cardiovascular disease Hypertension Social History Social History Smoking status: Never smoker Second hand tobacco smoke exposure: No Alcohol intake: never Substance use: never Substance use type: does not use Lack of Transportation: No Lack of Food: Never True Current Housing: I Have Housing Concerned About Future Housing: Decline to Answer Difficulty Paying Gas/Electric Bills: No Difficulty Paying for Meds: No Currently Unemployed: No Education: Decline to Answer Difficulty w/ Childcare or Family Care: No Living arrangements: alone Spiritual care concerns: No Meds Home Medications and Allergies Home Medications Medication Instructions Recorded Confirmed Type amlodipine 10 mg tablet 10 mg PO DAILY 02/24/20 10/09/22 History atorvastatin 20 mg tablet 20 mg PO DAILY 02/24/20 10/09/22 History benazepril 40 mg tablet 40 mg PO DAILY 02/24/20 10/09/22 History ferrous sulfate 325 mg (65 mg 325 mg PO BID #60 tabs 02/24/23 03/28/23 Rx iron) tablet Allergies Allergy/AdvReac Type Severity Reaction Status Date / Time codeine AdvReac Intermediate Nausea and Verified 10/09/22 09:20 Vomiting Exam Const: General: cooperative, comfortable and no acute distress Neck: Neck: normal visual inspection, full ROM and no lymphadenopathy Chest: Chest palpation & inspection: normal inspection of the chest and normal palpation of entire chest wall Other: incisions healing well Resp: Auscultation: clear to auscultation bilaterally Cardio: Rate: regular rate Rhythm: regular rhythm GI: Inspection: normal to inspection Assessment and Plan Assessment and plan (1) Invasive ductal carcinoma of right breast: Code(s): C50.911 - Malignant neoplasm of unspecified site of right female breast Status: Chronic Assessment and Plan: setup to place VAD for adjuvant treatment of recurrent breast cancer
[2022-10-11] MEDS: KETOROLAC 15 MG/ML VIAL (*BKC) IV PUSH (10:57)
--- NOTE | 2022-10-11 10:59 | SUR.PREOP ---
pt informed delay in procedure.
[2022-10-11] MEDS: LACTATED RINGERS 1,000 ML 30 ML IV CONT (11:20)
--- NOTE | 2022-10-11 11:24 | WPDANESEPPF ---
Anes - Initial Pre Proc Eval Procedure: Operation Date: 10/11/22 12:00 Proposed Procedures p Insertion Lyudmila Cath - Aga Apple MD Date/Time: 10/11/22 11:24 Surgeon: Aga Apple MD Pre Op Diagnosis: Rt Breast Ca Patient Data Age: 72 Gender: F Height: 1.6 m Weight: 67.8 kg Allergies Allergy/AdvReac Type Severity Reaction Status Date / Time codeine AdvReac Intermediate Nausea and Verified 10/11/22 10:41 Vomiting Home Medications Medication Instructions Recorded Confirmed Type amlodipine 10 mg tablet 10 mg PO DAILY 02/24/20 10/11/22 History atorvastatin 20 mg tablet 20 mg PO DAILY 02/24/20 10/11/22 History benazepril 40 mg tablet 40 mg PO DAILY 02/24/20 10/11/22 History biotin 5 mg capsule 5 mg PO DAILY 10/11/22 10/11/22 History calcium carbonate 200 mg calcium 1 tablet PO DAILY 10/11/22 10/11/22 History (500 mg)-vitamin D3 400 unit tablet vitamin B complex 1 cap PO DAILY 10/11/22 10/11/22 History Patient hx anesthesia problems: none Family hx anesthesia problems: none Results Review: All pre-operative results and documents have been reviewed as part of the pre-operative evaluation. [facility] Past Medical History Medical History (Updated 10/11/22 @ 11:25 by Eric Del Toro MD) BRCA2 gene mutation positive in female Diagnosed with genetic testing May 2017 Hepatitis-C High cholesterol Hypertension Invasive ductal carcinoma of right breast 2 different sites right breast inferior medial quadrant 2021 Surgical History Surgical History (Updated 10/11/22 @ 11:25 by Eric Del Toro MD) H/O mastectomy Right modified radical and L simple mastectomy on 09/05/22 History of bilateral mastectomy History of bilateral salpingo-oophorectomy (BSO) February 2020, no evidence of malignancy History of evacuation of hematoma 09/06/2022- evacuation large hematoma left mastectomy wound History of right breast cancer Diagnosed and treated 1997. Lumpectomy, sentinel node biopsy, radiation therapy and chemotherapy. Family History Family History Sibling Cerebrovascular accident Family history of malignant neoplasm Father COPD (chronic obstructive pulmonary disease) Other Diabetes mellitus Family history of cardiovascular disease Hypertension Social History Social History Smoking status: Never smoker Second hand tobacco smoke exposure: No Alcohol intake: never Substance use: never Substance use type: does not use Lack of Transportation: No Lack of Food: Never True Current Housing: I Have Housing Concerned About Future Housing: Decline to Answer Difficulty Paying Gas/Electric Bills: No Difficulty Paying for Meds: No Currently Unemployed: No Education: Decline to Answer Difficulty w/ Childcare or Family Care: No Living arrangements: alone Spiritual care concerns: No Anes - Eval Final PreProcedure Day of Procedure 10/11/22 11:24 Patient weight: overweight Heart: regular rate and rhythm Lungs: clear to auscultation Airway: Mallampati scale class II Neurological: alert and oriented Last oral intake: 4 hours (930am) ASA classification: III Emergent: no Anesthetic plan: proceed Anesthesia type and monitoring: general GIVS Results Review: All pre-operative results and documents have been reviewed as part of the pre-operative evaluation. Informed Consent: The patient's anesthetic plan and its attendant risks and benefits were discussed with the patient/family/POA. Questions were solicited and answers provided to the satisfaction of the patient/family/POA.
--- NOTE | 2022-10-11 11:41 | WPDHPUPDATE1 ---
History and Physical Update Update Date/Time: 10/11/22 11:41 History and Physical has been reviewed, including an updated exam of the patient. There are NO changes in the patient's condition. Risks, benefits, and alternatives have been discussed and questions answered. Patient agrees to proceed with procedure.
[2022-10-11] MEDS: ceFAZolin 2 GM/D5W 50 ML 2 GM/50 ML BAG IVPB (11:47)
[2022-10-11] MEDS: BUPIVACAINE/EPINEPHRINE 0.5% 50 ML VIAL 30 ML INFILTRATE (12:22)
--- NOTE | 2022-10-11 12:27 | SUR.OPER ---
NOT TO SEND U/S TO XRAY PER SURGEON
[2022-10-11 12:37] VITALS: BP 154/59; PULSE 87; RESP 16; O2SAT 97
--- NOTE | 2022-10-11 12:56 | W.PM.PROC2 ---
Procedure Note - Detailed Date of Procedure 10/11/22 Pre-op Diagnosis Recurrent right breast cancer Post-op Diagnosis Same Procedure Performed placement of left internal jugular venous access device under ultrasound and fluoroscopic guidance Surgeon Aga Apple MD Anesthesia MAC and Local Indications 72-year-old female presenting with recurrent right breast cancer status post modified radical mastectomy needing venous access device for adjuvant therapy Findings 1st stick LIJ Description of Procedure Patient was brought into the operating room and placed in the supine position. After adequate induction of mac anesthesia, the patient was prepped and draped in normal sterile fashion. Time-out was then done to verify the patient's identity, as well as the procedure being performed. I began by using the ultrasound to gain access into the left internal jugular vein. Once access was gained, I placed the guidewire in the vein and confirmed proper positioning via fluoroscopy. I then locally anesthetized an area in the left chest. I then made an incision in the left chest including making a subcutaneous pocket inferiorly to allow placement of the port itself. I proceeded to tunnel the catheter from the chest to the left neck insertion site. I then placed a dilating sheath over the guidewire into the left internal jugular vein via sterile Seldinger technique. This was once again done and confirmed via fluoroscopic guidance. I then removed the dilator and the guidewire, now just leaving the sheath in the vein. I then fed the previously flushed catheter into the left internal jugular vein under fluoroscopic guidance. At approximately 26 cm, the catheter was noted to be near the atrial caval junction. I then peeled away the sheath, now just leaving the catheter in the vein. I then was able to easily draw and flush from the catheter. The catheter was cut to fit and attached to the port itself. The port was placed into the previously made subcutaneous pocket and sutured in with 0 Ethibond suture. Final fluoroscopic view showed the termination of the catheter at the atrial caval junction with a nice smooth curvature back to the port itself. I was able to gain access to the port with a [place] needle and was able to easily draw and flush from the port. I then flushed 4 cc of a final heparin flush into the port. The incision was closed with 3 0 Vicryl suture in the subcutaneous tissue and the skin was closed with 4 O Monocryl subcuticular suture. Dermabond was then placed on wound. The patient tolerated the procedure well and will be sent to the recovery room in stable condition. Implants LIJ VAD Estimated Blood Loss 10 Pathology None sent Complications No immediate complications Condition Stable Disposition PACU [facility] Billing Surgery - Charge Forward: Surgery Billing
[2022-10-11 13:00] VITALS: BP 164/69; PULSE 69; RESP 16; O2SAT 95
[2022-10-11 13:30] VITALS: BP 136/97; PULSE 72; RESP 16
--- NOTE | 2022-10-11 14:36 | SUR.PHASEII ---
1300 chest xray results with catheter in place without pneumothorax
== END 2022-10-11 13:45 | disposition home or self-care (01) ==
PROVIDERS: Visit Provider Surgery
PROC: (CPT 36561; principal; 2022-10-11 12:00)
DX: C50.911 Malignant neoplasm of unspecified site of right female breast (principal); I10 Essential (primary) hypertension; E78.00 Pure hypercholesterolemia, unspecified; B19.20 Unspecified viral hepatitis C without hepatic coma; Z15.01 Genetic susceptibility to malignant neoplasm of breast
CPT/HCPCS: 36561; 36415; 77001; 85025; 85610; 85730; C1788; J0690; J1644; J1885; J2250; J2405; J2704; J3010; J7030; J7120

== ENCOUNTER 2023-05-06 02:48 | Day surgery (SDC) | payer BC, MEDICARE, SELFPAY ==
[2023-05-02 08:22] VITALS: BMI 25.4
--- NOTE | 2023-05-02 08:28 | PC.NURSE ---
Report to the Outpatient Waiting Room, entrance under the green pavilion located off [facility], at time ___0900____ on date _05/06/23 . Planned Procedure Time: __1100 . Time changes happen often and if your time is changed the preop area will call you the afternoon before. - You and your visitor will be asked to self-screen and do not enter if you have any COVID symptoms. - A mask is optional within the hospital at this time. Patients may have clear liquids (water, carbonated beverages, clear teas, apple juice) until 3 hours prior to surgery (0800 AM) with a maximum of 20 ounces. - No food from midnight until time of surgery - Infants may have breast milk until 4 hours before surgery, infant formula 6 hours prior to surgery. - Children will be allowed to drink immediately following surgery. If applicable, please bring a bottle or sippy cup to assist with drinking. Juice, water, soda, and popsicles are readily available. For infants on formula, please bring formula the day of surgery. Pacifiers are allowed. Take the following medications with a SIP of water the morning of surgery: ____AMLODIPINE DO NOT STOP ANY OF YOUR OTHER PRESCRIPTION MEDICATIONS PRIOR TO SURGERY ?EXCEPT THE FOLLOWING Medications to discontinue per physician VITAMINS/SUPPLEMENTS OF TODAY Date to take last dose Please no make-up, nail [place] citizen, hairspray, perfume, deodorant, or body powder the day of surgery. No jewelry (including any body piercings) or valuables the day of surgery, leave them at home. Please take a shower or bath the night before, or the morning of, surgery with an antibacterial soap. Wear comfortable, loose fitting clothing. Children are encouraged to wear pajamas. - Jewelry must be removed prior to entering the operating room. Rings and piercings that are not removed may be cut off. - The hospital will not accept responsibility for valuables. - Please leave all valuables, including medications, at home the day of surgery. If you are going home after surgery, a licensed student truck driver must drive you home. - NO public transportation without another adult if you receive anesthesia. - We recommend that an adult stay with you for 24 hours following discharge. - We also recommend that you do not drive, make important decision, drink alcoholic beverages, or take any drugs that were not prescribed by your health care provider for at least 24 hours after your discharge time. For Pediatric surgeries, we recommend two adults accompany the child home. Follow any additional instructions given to you from your surgeon. If you or anyone in your household have experienced Covid symptoms in the past week, please notify your surgeon or the nurse liaison at the phone number below for possible testing. Telephone instructions given to ___PT and asked if any additional questions and then verbalized understanding. Patient advised to call surgeon office or pre surgery nurse liaison [phone] if any additional questions.
[2023-05-06 08:30] VITALS: BP 147/74; PULSE 66; RESP 16; TEMP 36.7; O2SAT 100
--- NOTE | 2023-05-06 09:37 | WPDANESEPPF ---
Anes - Initial Pre Proc Eval Procedure: Operation Date: 05/06/23 10:30 Proposed Procedures p Removal Lyudmila Cath - Benjamín Kraus MD Date/Time: 05/06/23 09:37 Surgeon: Benjamín Kraus MD Pre Op Diagnosis: Breast Ca Patient Data Age: 73 Gender: F Height: 1.6 m Weight: 63.3 kg Last Vital Signs Temp 36.7 C 05/06/23 08:30 Pulse 66 05/06/23 08:30 Resp 16 05/06/23 08:30 BP 147/74 H 05/06/23 08:30 Pulse Ox 100 05/06/23 08:30 O2 Del Method Room Air 05/06/23 08:30 Allergies Allergy/AdvReac Type Severity Reaction Status Date / Time codeine AdvReac Intermediate Nausea and Verified 05/06/23 08:43 Vomiting Home Medications Medication Instructions Recorded Confirmed Type amlodipine 10 mg tablet 10 mg PO DAILY 02/24/20 05/06/23 History atorvastatin 20 mg tablet 40 mg PO DAILY 02/24/20 05/06/23 History benazepril 40 mg tablet 40 mg PO DAILY 02/24/20 05/06/23 History calcium carbonate 200 mg calcium 1 tablet PO DAILY 10/11/22 05/06/23 History (500 mg)-vitamin D3 400 unit tablet vitamin B complex 1 cap PO DAILY 10/11/22 05/06/23 History ascorbic acid (vitamin C) 500 mg 500 mg PO DAILY 05/02/23 05/06/23 History chewable tablet (Vitamin C) hydrochlorothiazide 12.5 mg capsule 12.5 mg DAILY 05/02/23 05/06/23 History vitamin E 400 unit tablet 400 unit PO DAILY 05/02/23 05/06/23 History Patient hx anesthesia problems: none Family hx anesthesia problems: none Results Review: All pre-operative results and documents have been reviewed as part of the pre-operative evaluation. [facility] Past Medical History Medical History BRCA2 gene mutation positive in female Diagnosed with genetic testing May 2017 Hepatitis-C High cholesterol Hypertension Invasive ductal carcinoma of right breast 2 different sites right breast inferior medial quadrant 2021 Surgical History Surgical History H/O mastectomy Right modified radical and L simple mastectomy on 09/05/22 History of bilateral mastectomy History of bilateral salpingo-oophorectomy (BSO) February 2020, no evidence of malignancy History of evacuation of hematoma 09/06/2022- evacuation large hematoma left mastectomy wound History of right breast cancer Diagnosed and treated 1997. Lumpectomy, sentinel node biopsy, radiation therapy and chemotherapy. Family History Family History Sibling Cerebrovascular accident Family history of malignant neoplasm Father COPD (chronic obstructive pulmonary disease) Other Diabetes mellitus Family history of cardiovascular disease Hypertension Social History Social History Smoking status: Never smoker Second hand tobacco smoke exposure: No Alcohol intake: never Substance use: never Substance use type: does not use Lack of Transportation: No Lack of Food: Never True Current Housing: I Have Housing Concerned About Future Housing: Decline to Answer Difficulty Paying Gas/Electric Bills: No Difficulty Paying for Meds: No Currently Unemployed: No Education: Decline to Answer Difficulty w/ Childcare or Family Care: No Living arrangements: alone Spiritual care concerns: No Anes - Eval Final PreProcedure Day of Procedure 05/06/23 09:37 Patient weight: normal Heart: regular rate and rhythm Lungs: clear to auscultation and normal air movement Airway: Mallampati scale class II Neurological: alert and oriented Last oral intake: >/= 8 hours ASA classification: III Emergent: no Anesthetic plan: proceed Anesthesia type and monitoring: general GIVS and standard monitoring Results Review: All pre-operative results and documents have been reviewed as part of the pre-operative evaluation. Informed Consent: The patient's anesthetic plan an
--- NOTE | 2023-05-06 10:27 | P.PNGS_ITS ---
Progress Note: A&P Assessment and Plan (1) Port-A-Cath in place: Code(s): Z95.828 - Presence of other vascular implants and grafts Status: Acute Assessment and Plan: Pt has decided not to proceed with port removal today. Surgery will be cancelled. Pt instructed to discuss with her Oncologist who had requested the port to be removed. Subjective Subjective Date/Time Seen: 05/06/23 10:27 Interval history: Pt presented today to get portacaheter removed as requested by her oncologist Dr. Sneed at [facility]. Pt was treated for breast cancer. Today when she needed an IV placed, there was difficulty in getting peripheral IV access. Because of this, she had second thoughts about having the port removed. I discussed with her the risk of infection of the port over time and risk of thrombosis of the central vein the catheter is in. She has decided to keep the port for now and her surgery to remove the port has been cancelled. I instructed her to discuss with her oncologist her decision to keep the port since they had requested removal of the port today. Objective Data Vital Signs Vital Signs: Vital Signs - 24 hr 05/06/23 08:30 Temperature 36.7 C Pulse Rate 66 Respiratory Rate 16 Blood Pressure 147/74 H Pulse Oximetry 100 Oxygen Delivery Room Air Meds/Results Medications: Active Medications Generic Name Dose Route Start Last Admin Trade Name Freq PRN Reason Stop Dose Admin Lactated Ringer's 1,000 mls @ 30 mls/hr 05/06/23 09:45 Lr - Lactated Ringers Iv IV CONT .Q24H ISABELA
== END 2023-05-06 10:30 | disposition home or self-care (01) ==
PROVIDERS: Visit Provider Surgery
PROC: (CPT 36589; principal; 2023-05-06 10:30)
DX: Z45.2 Encounter for adjustment and management of vascular access device (principal); Z53.9 Procedure and treatment not carried out, unspecified reason
CPT/HCPCS: 99213; G0463

== ENCOUNTER 2024-03-04 12:17 | Outpatient (CLI) | payer MEDICARE, SELFPAY ==
[2024-03-04 13:31] LABS: Anion Gap 9 mmol/L (4-12); Blood Urea Nitrogen 29 mg/dL (7-17); Calcium 9.4 mg/dL (8.4-10.2); Carbon Dioxide 29 mmol/L (22-30); Chloride 101 mmol/L (98-107); Estimated Glomerular Filt Rate > 60; Glucose 128 mg/dL (65-110); Potassium 3.7 mmol/L (3.4-5.0); Sodium 139 mmol/L (137-145)
== END 2024-03-04 12:18 | disposition home or self-care (01) ==
PROVIDERS: Anesthesiology; Visit Provider Surgery
DX: Z01.818 Encounter for other preprocedural examination (principal); T50.2X5A Adverse effect of carbonic-anhydrase inhibitors, benzothiadiazides and other diuretics, initial encounter
CPT/HCPCS: 36415; 80048

== ENCOUNTER 2024-03-09 01:17 | Day surgery (SDC) | payer MEDICARE, SELFPAY ==
[2024-03-03 14:09] VITALS: BMI 24.7
--- NOTE | 2024-03-03 14:23 | PC.NURSE ---
Report to the Outpatient Waiting Room, entrance under the green pavilion located off [facility], at 1130 on 03/09/24. Planned Procedure Time: 1330. Time changes happen often and if your time is changed the preop area will call you the afternoon before. - You and your visitor will be asked to self-screen and do not enter if you have any COVID symptoms. - A mask is optional within the hospital at this time. Patients may have clear liquids (water, carbonated beverages, clear teas, apple juice) until 3 hours prior to surgery with a maximum of 20 ounces. - No food from midnight until time of surgery Take the following medications with a SIP of water the morning of surgery: amlodipine DO NOT STOP ANY OF YOUR OTHER PRESCRIPTION MEDICATIONS PRIOR TO SURGERY ?EXCEPT THE FOLLOWING Medications to discontinue per physician n/a Date to take last dose Please no make-up, nail togolese, hairspray, perfume, deodorant, or body powder the day of surgery. No jewelry (including any body piercings) or valuables the day of surgery, leave them at home. Please take a shower or bath the night before, or the morning of, surgery with an antibacterial soap. Wear comfortable, loose fitting clothing. - Jewelry must be removed prior to entering the operating room. Rings and piercings that are not removed may be cut off. - The hospital will not accept responsibility for valuables. - Please leave all valuables, including medications, at home the day of surgery. If you are going home after surgery, a licensed fuel truck driver must drive you home. - NO public transportation without another adult if you receive anesthesia. - We recommend that an adult stay with you for 24 hours following discharge. - We also recommend that you do not drive, make important decision, drink alcoholic beverages, or take any drugs that were not prescribed by your health care provider for at least 24 hours after your discharge time. Follow any additional instructions given to you from your surgeon. If you or anyone in your household have experienced Covid symptoms in the past week, please notify your surgeon or the nurse liaison at the phone number below for possible testing. Telephone instructions given to patient and asked if any additional questions and then verbalized understanding. Patient advised to call surgeon office or pre surgery nurse liaison [phone] if any additional questions.
[2024-03-09 07:36] VITALS: BP 119/66; PULSE 55; RESP 18; TEMP 36.1; O2SAT 100
[2024-03-09] MEDS: LACTATED RINGERS 1,000 ML 30 ML IV CONT (07:55)
--- NOTE | 2024-03-09 09:03 | WPDANESEPPF ---
Anes - Initial Pre Proc Eval Procedure: Operation Date: 03/09/24 09:00 Proposed Procedures p Removal Akshat Cath - Benjamín Kraus MD Date/Time: 03/09/24 09:03 Surgeon: Benjamín Kraus MD Pre Op Diagnosis: Breast Ca Patient Data Age: 73 Gender: F Height: 1.6 m Weight: 65.3 kg Last Vital Signs Temp 97.0 F L 03/09/24 07:36 Pulse 55 L 03/09/24 07:36 Resp 18 03/09/24 07:36 BP 119/66 03/09/24 07:36 Pulse Ox 100 03/09/24 07:36 O2 Del Method Room Air 03/09/24 07:36 Allergies Allergy/AdvReac Type Severity Reaction Status Date / Time codeine AdvReac Intermediate Nausea and Verified 03/03/24 14:06 Vomiting Home Medications Medication Instructions Recorded Confirmed Type amlodipine 10 mg tablet 5 mg PO DAILY 02/24/20 03/03/24 History atorvastatin 20 mg tablet 40 mg PO DAILY 02/24/20 03/03/24 History benazepril 40 mg tablet 40 mg PO DAILY 02/24/20 03/03/24 History hydrochlorothiazide 12.5 mg capsule 12.5 mg DAILY 05/02/23 03/03/24 History alendronate 70 mg tablet 70 mg PO WEEKLY 03/03/24 03/03/24 History Patient hx anesthesia problems: none Family hx anesthesia problems: none Results Review: All pre-operative results and documents have been reviewed as part of the pre-operative evaluation. 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 Lumpectomy, sentinel node biopsy, radiation therapy and chemotherapy. Family History Family History Sibling Cerebrovascular accident Family history of malignant neoplasm Father COPD (chronic obstructive pulmonary disease) Other Diabetes mellitus Family history of cardiovascular disease Hypertension Social History Social History Smoking status: Never smoker Second hand tobacco smoke exposure: No Alcohol intake: former Substance use: never Substance use type: does not use Lack of Transportation: No Lack of Food: Never True Current Housing: I Have Housing Concerned About Future Housing: Decline to Answer Difficulty Paying Gas/Electric Bills: No Difficulty Paying for Meds: No Currently Unemployed: No Education: Decline to Answer Difficulty w/ Childcare or Family Care: No Living arrangements: alone Spiritual care concerns: No Anes - Eval Final PreProcedure Day of Procedure 03/09/24 09:03 Patient weight: normal and super morbidly obese Heart: regular rate and rhythm Lungs: clear to auscultation Airway: Mallampati scale class II Neurological: alert and oriented Last oral intake: >/= 8 hours ASA classification: II Emergent: no Anesthetic plan: proceed Anesthesia type and monitoring: general GIVS and standard monitoring Results Review: All pre-operative results and documents have been reviewed as part of the pre-operative evaluation. Hx of breast ca, now for akshat cath removal. Informed Consent: The patient's anesthetic plan and its attendant risks and benefits were discussed with the patient/family/POA. Questions were solicited and answers provided to the satisfaction of the patient/family/POA.
--- NOTE | 2024-03-09 09:04 | PM.IMHP ---
H&P: HPI History of Present Illness Date/Time: 03/09/24 09:04 Chief Complaint: Port in place Narrative: Pt with prior hx of right breast CA who had port placed in 2022 for chemo tx. Port is no longer being used and is not flushing or aspirating well now. She presents for removal of the port. Port is in the left IJ vein. Review of Systems Review of Systems: The remainder of the review of systems to include constitutional, HEENT, cardiovascular, respiratory, GI, , integumentary, musculoskeletal, endocrine, immunologic, hematologic, psychiatric, and neurologic are all negative except for which is mentioned above in the HPI. 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 Lumpectomy, sentinel node biopsy, radiation therapy and chemotherapy. Family History Family History Sibling Cerebrovascular accident Family history of malignant neoplasm Father COPD (chronic obstructive pulmonary disease) Other Diabetes mellitus Family history of cardiovascular disease Hypertension Social History Social History Smoking status: Never smoker Second hand tobacco smoke exposure: No Alcohol intake: former Substance use: never Substance use type: does not use Lack of Transportation: No Lack of Food: Never True Current Housing: I Have Housing Concerned About Future Housing: Decline to Answer Difficulty Paying Gas/Electric Bills: No Difficulty Paying for Meds: No Currently Unemployed: No Education: Decline to Answer Difficulty w/ Childcare or Family Care: No Living arrangements: alone Spiritual care concerns: No Meds Home Medications and Allergies Home Medications Medication Instructions Recorded Confirmed Type amlodipine 10 mg tablet 5 mg PO DAILY 02/24/20 03/03/24 History atorvastatin 20 mg tablet 40 mg PO DAILY 02/24/20 03/03/24 History benazepril 40 mg tablet 40 mg PO DAILY 02/24/20 03/03/24 History hydrochlorothiazide 12.5 mg capsule 12.5 mg DAILY 05/02/23 03/03/24 History alendronate 70 mg tablet 70 mg PO WEEKLY 03/03/24 03/03/24 History Allergies Allergy/AdvReac Type Severity Reaction Status Date / Time codeine AdvReac Intermediate Nausea and Verified 03/03/24 14:06 Vomiting Vital Signs Vital Signs - 24 hr 03/09/24 07:36 Temperature 36.1 C L Pulse Rate 55 L Respiratory Rate 18 Blood Pressure 119/66 Pulse Oximetry 100 Oxygen Delivery Room Air Exam Const: General: comfortable and no acute distress HENMT: Ears: TM's normal bilaterally Face/Nose/Sinus: Normal nares present Mouth: Yes moist mucous membranes Eyes: General: appearance normal, both eyes and all related structures Sclera: sclerae normal Pupils: Equal, round and reactive pupils present EOM: EOMs intact bilaterally Neck: Neck: supple and no JVD Chest: Other: Left upper anterior chest port in place. No redness or tenderness to the port site. Resp: Effort & Inspection: normal respiratory effort Auscultation: clear to auscultation bilaterally Cardio: Rate: regular rate Rhythm: regular rhythm GI: GI Palp: Yes Soft to palpation, No Firmness to palpation present (
--- NOTE | 2024-03-09 09:08 | WPDHPUPDATE1 ---
History and Physical Update Update Date/Time: 03/09/24 09:08 History and Physical has been reviewed, including an updated exam of the patient. There are NO changes in the patient's condition. Risks, benefits, and alternatives have been discussed and questions answered. Patient agrees to proceed with procedure.
[2024-03-09] MEDS: LIDO 1%/EPINEPHRINE 1:100,000 50 ML VIAL 10 ML INFILTRATE (09:54)
[2024-03-09] MEDS: BUPivacaine HCL 0.5% 10 ML AMP INFILTRATE (09:55)
[2024-03-09] MEDS: ceFAZolin SODIUM 1 GM VIAL IV PUSH (10:01)
--- NOTE | 2024-03-09 10:19 | P.OP_ITS ---
Procedure Note - Detailed Date of Procedure 03/09/24 Pre-op Diagnosis History of right breast cancer, akshat catheter in place Post-op Diagnosis Same Procedure Performed Removal of left internal jugular vein akshat catheter Surgeon Benjamín Kraus MD [employer] MARIAN Andrade Anesthesia MAC and Local Indications Patient is a 73-year-old female who has a history of right breast cancer for which she had a akshat catheter placed in 2022 and a left internal jugular vein. She no longer needs to akshat catheter presents now for removal. Findings None Description of Procedure After informed consent was obtained patient was brought to the operating room she was placed supine position and then IV sedation was administered by anesthesia. Left upper anterior neck and chest was then prepped and draped in usual sterile fashion. A time-out was then performed correctly identifying the patient as well as procedure to be performed. She was given Ancef for perioperative IV antibiotics. 1% lidocaine mixed with 0.5% Marcaine was injected underneath the old scar around the port in the left upper anterior chest wall. I then made a transverse elliptical incision to encompass the old scar. The old scar was then excised out sharply with a scalpel. I then dissected down through the subcutaneous tissue electrocautery until I encountered the hub to the port. This was then dissected out circumferentially after cautery and then the catheter to the hub was then freed up and then with gentle traction on the catheter are removed from the left internal jugular vein. Pressure was then held in the area the left internal jugular vein for hemostasis. The port was then excised from the subcutaneous port pocket utilized electrocautery. Once it was freed it was discarded. I then fulgurated the fibrous capsule within the port pocket with electrocautery. Hemostasis was good. The irrigated the subcu port pocket. Then close incision utilizing interrupted 3-0 Vicryl sutures in subcutaneous tissues. The skin edges were then approximated lies in a running subcuticular 4-0 Monocryl suture. The incision was then cleaned the skin glue sterile dressings were applied. The patient tolerated the procedure well no complications. All sponges, needles, and instrument counts were correct at the end procedure. EBL was _2__cc. The patient was awakened and taken to recovery in stable and satisfactory condition. Implants None Estimated Blood Loss 2 Drains No Packing No Pathology None sent Complications No immediate complications Condition Stable Disposition PACU [facility] Billing Surgery - Charge Forward: Surgery Billing
[2024-03-09 10:23] VITALS: BP 102/56; PULSE 68; RESP 18; O2SAT 100
[2024-03-09 10:35] VITALS: O2SAT 98
[2024-03-09 10:53] VITALS: BP 105/60; PULSE 69; RESP 16
== END 2024-03-09 11:10 | disposition home or self-care (01) ==
PROVIDERS: Visit Provider Surgery
PROC: (CPT 36589; principal; 2024-03-09 09:00)
DX: Z45.2 Encounter for adjustment and management of vascular access device (principal); I10 Essential (primary) hypertension; E78.5 Hyperlipidemia, unspecified; E66.01 Morbid (severe) obesity due to excess calories; Z68.25 Body mass index [BMI] 25.0-25.9, adult; Z79.83 Long term (current) use of bisphosphonates; Z98.890 Other specified postprocedural states; Z92.3 Personal history of irradiation; Z92.21 Personal history of antineoplastic chemotherapy; Z85.3 Personal history of malignant neoplasm of breast; Z80.9 Family history of malignant neoplasm, unspecified; Z82.49 Family history of ischemic heart disease and other diseases of the circulatory system
CPT/HCPCS: 36590; J0690; J2405; J2704; J3010; J7120